=== PATIENT | female | born 1985 | race Two or more races ===

== ENCOUNTER 2016-05-31 13:40 | Emergency (ER) | payer MEDICAID, OTHER ==
[~2016-05-31] VITALS: Ht 170.2 cm; Wt 61.2 kg
[2016-05-31 17:15] VITALS: BP 126/74
== END 2016-05-31 17:25 | disposition home or self-care (01) ==
LOC: ER 13:55
DX: G43.909 Migraine, unspecified, not intractable, without status migrainosus (principal)